=== PATIENT | female | born 1955 | race Caucasian/White ===

== ENCOUNTER 2017-02-20 16:17 | Emergency (ER) | payer OTHER ==
[~2017-02-20] VITALS: Ht 157.5 cm; Wt 96.7 kg
[2017-02-20 16:32] VITALS: TEMP 36.7; Ht 157.5 cm; Wt 96.7 kg
[2017-02-20] MEDS ORDERED: ASPI81TA28 PO (16:46)
[2017-02-20] MEDS ORDERED: LEVO88TA3 PO (16:46)
[2017-02-20] MEDS ORDERED: LISI40TA PO (16:46)
[2017-02-20] MEDS ORDERED: ATOR-22 PO (16:46)
--- NOTE | 2017-02-20 16:46 | EMERGENCY ROOM VISIT NOTE ---
ED Visit Note First contact with patient: 16:37 CHIEF COMPLAINT: knee pain HISTORY OF PRESENT ILLNESS: This patient is a 61-year-old female that presents the emergency department complaining of right knee pain and buckling over the last few weeks. She does report injuring the knee when she fell 2 years ago. She did not get it checked out at that time. She took a "pain pill" at home. She is unsure of the name. It seemed to help. She is having difficulty walking and bearing weight on the knee. She denies any pain in the hip. She does note some shooting pain that shot down the outside of her leg to her ankle today. REVIEW OF SYSTEMS: A 6 system review of systems was completed with positives and pertinent negatives listed in the HPI. ALLERGIES: No known drug allergies MEDICATIONS: Reviewed PMH: Hypertension SOCIAL HISTORY: She does not smoke or drink alcohol. PHYSICAL EXAM: Vital Signs: Reviewed Nurse's notes, vital signs stable. GENERAL : 61-year-old female, appears older than stated age, no acute distress, but appears in pain, well-developed, well-nourished. MENTAL STATUS: Alert, oriented to person place and time, and cooperative. MUSCULOSKELETAL: The right knee is slightly swollen. There is no ecchymosis. There is no joint effusion present. The patient is tender medial aspect of the knee. There is no joint line tenderness. The patella does not subluxate. Range of motion is slightly limited secondary to pain. Strength of the quads and hamstrings is 5/ 5. Juan Alberto's is negative. Nguyen's and Anterior Drawer tests are negative. There is pain with varus and valgus stressing. The foot and toes are warm and well-perfused. Dorsalis pedis pulse 2+. Sensation to pain and light touch is intact. Capillary refill less than 2 seconds. SKIN: Small area of erythema approximately 0.5 cm noted to the left scapular region. No bull's-eye noted. No fluctuance or pointing. EMERGENCY DEPARTMENT COURSE: I examined the patient. X-rays of the right knee were reviewed by myself and read by radiology RIGHT KNEE 3 VIEWS CLINICAL HISTORY: 61 years-old Female presenting with R knee pain Right. TECHNIQUE: Frontal, lateral, and sunrise views of the right knee were obtained. COMPARISON: None. FINDINGS: Knee joint congruent. No significant degenerative change. No acute fracture or malalignment. Knee joint effusion may be present. IMPRESSION: No acute osseous injury of the right knee. Suspected knee joint effusion. Electronically signed by: Lino Roth M.D. 02/20/2017 5:13 PM Dictated Date/Time: 02/20/2017 5:12 PM The patient was placed in a knee immobilizer under my direction and the position was satisfactory. The patient was instructed on the use of crutches. The patient was reassessed. She noted a bug bite on her back. This was evaluated. We discussed the results of her workup. The patient had her blood drawn for Lyme titer. The patient was going to be discharged, she was noted to be tachycardic. Her blood pressure was stable. She was reevaluated. She denied any symptoms of chest pain, shortness of breath, heart palpitations or dizziness. I advised that she undergo a cardiac workup in the emergency department including an EKG and blood work. She refused. I urged the patient to follow-up with her primary care physician and annealer helper as soon as possible. She is in agreement. Discharge instructions were thoroughly reviewed, and she was discharged in fair condition The status of this report is Signed. Draft = Not yet reviewed or approved by Radiologist. Signed = Reviewed and approved by Radiologist. DIAGNOSIS: Right knee pain, tachycardia DISCHARGE INSTRUCTIONS: Please refer to the discharge instructions provided to the patient
[2017-02-20] MEDS ORDERED: NXM/40 PO (16:47)
[2017-02-20] MEDS ORDERED: MYLAN PO (16:51)
--- NOTE | 2017-02-20 17:14 | DIAGNOSTIC IMAGING REPORT ---
RIGHT KNEE 3 VIEWS CLINICAL HISTORY: 61 years-old Female presenting with R knee pain Right. TECHNIQUE: Frontal, lateral, and sunrise views of the right knee were obtained. COMPARISON: None. FINDINGS: Knee joint congruent. No significant degenerative change. No acute fracture or malalignment. Knee joint effusion may be present. IMPRESSION: No acute osseous injury of the right knee. Suspected knee joint effusion. Electronically signed by: Lino Roth M.D. 02/20/2017 5:13 PM Dictated Date/Time: 02/20/2017 5:12 PM
[2017-02-20] MEDS ORDERED: HYDROCODONE/ACETAMOPHEN 5/325MG TAB PO STA (17:15)
[2017-02-20] MEDS ORDERED: HYDR-5688 PO (17:30)
[2017-02-20 17:43] VITALS: BP 149/93; PULSE 131; O2SAT 94
[2017-02-20 18:42] LABS: LYME DISEASE AB IGM NEG (NEG)
[2017-02-20 18:43] LABS: LYME DISEASE AB IGG POS (NEG)
[2017-02-27 05:10] LABS: 18KDIGG BAND REACTIVE (NONREACTIVE); 23KDIGG BAND NONREACTIVE (NONREACTIVE); 23KDIGM BAND REACTIVE (NONREACTIVE); 28KDIGG BAND REACTIVE (NONREACTIVE); 30KDIGG BAND REACTIVE (NONREACTIVE); 39KDIGG BAND REACTIVE (NONREACTIVE); 39KDIGM BAND NONREACTIVE (NONREACTIVE); 41KDIGG BAND REACTIVE (NONREACTIVE); 41KDIGM BAND REACTIVE (NONREACTIVE); 45KDIGG BAND REACTIVE (NONREACTIVE); 58KDIGG BAND REACTIVE (NONREACTIVE); 66KDIGG BAND REACTIVE (NONREACTIVE); 93KDIGG BAND REACTIVE (NONREACTIVE)
== END 2017-02-20 18:12 | disposition home or self-care (01) ==
LOC: C.EDB 16:19 → C.EDD 18:12
DX: M25.561 Pain in right knee (principal); R00.0 Tachycardia, unspecified; I10 Essential (primary) hypertension